=== PATIENT | female | born 1985 | race Caucasian/White ===

== ENCOUNTER 2022-06-14 14:17 | Emergency (ER) | payer BC, SELFPAY ==
[2022-06-14 14:26] VITALS: BP 127/78; PULSE 74; RESP 18; TEMP 36.6; O2SAT 100
--- NOTE | 2022-06-14 14:50 | ED.SKABFB ---
HPI - Skin/Abscess/Foreign Bdy General Chief complaint: Skin/Abscess/Foreign Body Stated complaint: Left Leg Skin Probem Time Seen by Provider: 06/14/22 14:50 Source: patient Mode of arrival: ambulatory Limitations: no limitations History of Present Illness HPI narrative: 36-year-old female presented complaining of bruising to the left upper inner thigh, 1st noticed yesterday. She denies any injury. she reports concerned because the site is nontender and she has no injury. She denies associated shortness of breath, palpitations, chest pain, redness or swelling to the lower extremity. Patient has a history of hidradenitis and severe scarring to the area. Related Data Home Medications Medication Instructions Recorded Confirmed biotin 10 mg tablet 10 mg PO DAILY 06/14/22 06/14/22 Allergies Allergy/AdvReac Type Severity Reaction Status Date / Time No Known Allergies Allergy Verified 06/14/22 14:29 Review of Systems Review of Systems: CONSTITUTIONAL: Denies body aches, fever, chills, or sweats. EYES: Denies visual changes, redness, or discharge. ENT: Denies rhinorrhea, congestion CARDIOVASCULAR: Denies chest pain, palpitations, or edema. RESPIRATORY: Denies cough or dyspnea. GASTROINTESTINAL: Denies abdominal pain, nausea, vomiting, or diarrhea. SKIN: Per HPI MUSCULOSKELETAL: Denies back pain, joint pain, or myalgia. NEUROLOGIC: Denies headache, numbness, tingling, or weakness. REPLACED BY [facility] Family History Family History Grandparent Family history of heart disease in male family member before age 55 Diabetes mellitus Other Family history of malignant neoplasm of male breast Social History Social History Alcohol intake: current Comments At time of signature, I have reviewed and agree with nursing past medical, surgical, social and family history unless otherwise noted. Please see nursing chart for further information. There is no relevant family history pertinent to the presenting complaint Exam Narrative: GENERAL: Well-appearing HEAD: Normocephalic, atraumatic. EYES: conjunctivae clear, and EOMI. ENT: Mucous membranes moist. Oropharynx without edema, erythema or lesions. NECK: Supple. No lymphadenopathy CHEST: Clear to auscultation. HEART: Regular rate and rhythm. SKIN: Warm, dry. left upper inner thigh /groin bruise apart 6 cm in diameter, yellow and purple in color. No open areas. Site is soft and nontender. She does have subcutaneous scarring at site of the bruising. NEURO: Alert and oriented x3. Course Course Emergency Course: Patient is aware of diagnosis, understands and agrees to treatment plan. Anticipatory guidance given. Patient agrees to follow-up as directed and is aware of reasons to seek care at the emergency department. Portions of this record may have been created with voice recognition software Level of Care: Express Care Visit Vital Signs Vital signs: Vital Signs Temperature 97.9 F 06/14/22 14:26 Pulse Rate 74 06/14/22 14:26 Respiratory Rate 18 06/14/22 14:26 Blood Pressure 127/78 06/14/22 14:26 Pulse Oximetry 100 06/14/22 14:26 Oxygen Delivery Room Air 06/14/22 14:26 Temperature 97.9 F 06/14/22 14:26 Pulse Rate 74 06/14/22 14:26 Respiratory Rate 18 06/14/22 14:26 Blood Pressure 127/78 06/14/22 14:26 Pulse Oximetry 100 06/14/22 14:26 Oxygen Delivery Room Air 06/14/22 14:26 Reviewed MDM - Skin/Abscess/Foreign Bdy MDM Narrative Medical decision making narrative: Instructed patient to go to nearest ER immediately for any worsening symptoms including but not limited to: fever, spreading bruising, pain, dizziness, chest pain, trouble breathing, or any symptoms concerning to the patient. Differential Diagnosis Differential diagnosis: Likely abscess of skin or subcutaneous tissue, urticaria, herpes zoste
== END 2022-06-14 15:00 | disposition home or self-care (01) ==
PROVIDERS: Emergency Provider Nurse Practitioner Family; PCP Physician Assistant
DX: S70.12XA Contusion of left thigh, initial encounter (principal); X58.XXXA Exposure to other specified factors, initial encounter; Z98.84 Bariatric surgery status
CPT/HCPCS: 99211; G0463

== ENCOUNTER 2025-06-22 08:26 | Outpatient (CLI) | payer BC, SELFPAY ==
[2025-06-22 13:42] LABS: Hematocrit 42.9 % (37.0-47.0); Hemoglobin 13.3 g/dL (12.0-15.0); Immature Granulocyte Percent A 0.3 % (0-0.5); Lymphocytes Absolute Auto 2.03 K/mm3 (0.9-3.2); Mean Corpuscular HGB Conc 31.0 g/dl (32-36); Mean Corpuscular Hemoglobin 28.8 pg (26-34); Mean Corpuscular Volume 92.9 fl (80-100); Nucleated Red Blood Cells Absolute Auto 0.000 K/mm3 (0.0-0.012); Nucleated Red Blood Cells Perc 0.0 % (0.0-0.2); Platelet Count Result 356 k/mm3 (150-375); Red Blood Count 4.62 M/mm3 (4.2-5.4); White Blood Count 6.3 K/mm3 (4.5-10.0)
[2025-06-22 16:25] LABS: Iron 65 ug/dL (37-170)
[2025-06-22 16:39] LABS: Alanine Aminotransferase 16 U/L (6-35); Albumin Level 3.9 g/dL (3.5-5.1); Alkaline Phosphatase 69 U/L (38-126); Anion Gap 4 mmol/L (4-12); Aspartate Amino Transferase 36 U/L (14-36); Bilirubin,Total 0.7 mg/dL (0.2-1.3); Blood Urea Nitrogen 15 mg/dL (7-17); Calcium 9.1 mg/dL (8.4-10.2); Carbon Dioxide 31 mmol/L (22-30); Chloride 105 mmol/L (98-107); Cholesterol 222 mg/dL (0-200); Estimated Glomerular Filt Rate > 60; Glucose 73 mg/dL (65-110); HDL Direct 63 mg/dL; Potassium 4.5 mmol/L (3.4-5.0); Sodium 140 mmol/L (137-145); Total Protein 7.6 g/dL (6.3-8.2); Triglycerides 102 mg/dL (<150)
[2025-06-22 16:45] LABS: Percent Iron Saturation 22 % (20-50)
[2025-06-22 17:11] LABS: Ferritin 17.40 ng/mL (6.24-137)
[2025-06-22 17:12] LABS: Thyroid Stimulating Hormone 5.130 uIU/mL (0.465-4.680)
[2025-06-22 17:15] LABS: Hemoglobin A1C 5.3 % (<5.7)
[2025-06-22 17:46] LABS: Vitamin B12 640.0 pg/mL (239-931)
[2025-06-23 11:32] LABS: Total Triiodothyronine (T3) 1.34 NG/ML (0.82-1.58)
== END 2025-06-22 08:27 | disposition home or self-care (01) ==
LOC: ANHGOSHLAB 08:27
DX: R73.01 Impaired fasting glucose (principal); Z13.29 Encounter for screening for other suspected endocrine disorder; Z13.0 Encounter for screening for diseases of the blood and blood-forming organs and certain disorders involving the immune mechanism; Z13.228 Encounter for screening for other metabolic disorders; R53.83 Other fatigue; Z13.220 Encounter for screening for lipoid disorders; E55.9 Vitamin D deficiency, unspecified
CPT/HCPCS: 36415; 80053; 80061; 82306; 82607; 82728; 82746; 83036; 83540; 83550; 84436; 84443; 84480; 85025